=== PATIENT | female | born 1955 | race Caucasian/White ===

== ENCOUNTER 2019-04-14 14:32 | Outpatient (CLI) | payer OTHER | END 2019-04-14 14:33 | disposition critical access hospital (66) | LOC: EMS 14:32 | PROVIDERS: ATTEND Surgery | DX: R07.9 Chest pain, unspecified (principal); R06.02 Shortness of breath | CPT/HCPCS: A0425; A0427 ==

== ENCOUNTER 2019-04-14 15:08 | Emergency (ER) | payer OTHER ==
--- NOTE | 2019-04-14 15:52 | ED Physician Documentation ---
PD HPI CHEST PAIN - Stated complaint Stated Complaint: CP - Chief complaint Chief Complaint: Cardiac - History obtained from History obtained from: Patient - History of Present Illness Timing - onset: Enter time (99), Today Timing - onset during: Rest Timing - duration: Hours Timing - details: Abrupt onset, Still present, Waxing and waning Pain level max: 6 Pain level now: 3 Quality: Pressure Location: Substernal, Left chest Radiation: Back. No: Jaw, Neck, Abdominal, Left upper extremity, Right upper extremity Improved by: Nothing Worsened by: Other (stress) Associated symptoms: No: Shortness of air, Diaphoresis, Nausea, Vomiting, Feeling faint / dizzy, General Weakness, Palpitations, Cough Similar symptoms before: Diagnosis (stress related chest pain) Recently seen: Clinic - Additional information Additional information: Previously well 63-year-old female with a history of stress related chest pain and a family history of early coronary disease I disease has developed chest pain at about 1 AM today at rest. She states the pain is like a pressure on her anterior chest and to the left and she is not having radiation into her jaw neck or arm and she denies any diaphoresis lightheadedness or dizziness. She has had similar pains previously and feels that she is under significant stress with a move and problems with her children. She indicates that she has had a prior episode similar to this related to stress spent the [facility] and [facility] and had negative work-up including stress test. Review of Systems Constitutional: denies: Fever Eyes: denies: Decreased vision Ears: denies: Ear pain Nose: denies: Rhinorrhea / runny nose, Congestion Throat: denies: Sore throat Cardiac: reports: Chest pain / pressure. denies: Palpitations, Pedal edema, Calf pain Respiratory: denies: Dyspnea, Cough, Wheezing GI: denies: Abdominal Pain, Nausea, Vomiting : denies: Dysuria, Frequency Skin: denies: Rash Musculoskeletal: denies: Neck pain, Back pain, Extremity pain Neurologic: denies: Generalized weakness, Focal weakness PD PAST MEDICAL HISTORY - Past Medical History Cardiovascular: Hypertension Respiratory: None Endocrine/Autoimmune: None GI: GERD, Pancreatitis CT TECHNOLOGIST: None : None HEENT: None Psych: Depression Musculoskeletal: None, Chronic back pain Derm: None - Past Surgical History Past Surgical History: Yes General: Cholecystectomy, Gastric surgery Ortho: Carpal Tunnel surgery /CT TECHNOLOGIST: Hysterectomy HEENT: Other - Present Medications Home Medications: Ambulatory Orders Medication Instructions Recorded Confirmed Cetirizine HCl [Zyrtec] 10 mg PO DAILY 04/07/16 04/07/16 Esomeprazole Magnesium [Nexium] 1 mg PO DAILY 04/07/16 04/29/16 Losartan/Hydrochlorothiazide 1 each PO DAILY #30 tablet 04/07/16 04/29/16 [Hyzaar 100-12.5 Tablet] Venlafaxine ER [Effexor ER] 1 mg PO DAILY 04/07/16 04/29/16 Lorazepam [Ativan] 1 mg PO Q6HR PRN #12 tablet 04/14/19 - Allergies Allergies/Adverse Reactions: Allergies Allergy/AdvReac Type Severity Reaction Status Date / Time atenolol [From Tenormin] Allergy Hives Verified 04/14/19 15:28 lisinopril [From Zestril] Allergy Unknown Verified 04/14/19 15:28 nifedipine [From Procardia] Allergy Unknown Verified 04/14/19 15:28 codeine AdvReac Rash Verified 04/14/19 15:28 sulfamethoxazole AdvReac Rash Verified 04/14/19 15:28 [From Bactrim] trimethoprim [From Bactrim] AdvReac Rash Verified 04/14/19 15:28 - Social History Does the pt smoke?: No Smoking Status: Never smoker Does the pt drink ETOH?: No Does the pt have substance abuse?: No - Immunizations Immunizations are current?: Yes - POLST Patient has POLST: No PD ED PE NORMAL - Vitals Vital signs reviewed: Yes (hypertensive ) - General General: Alert and oriented X 3, Well developed/nourished, Other (appears anxious/stressed) - HEENT HEENT: Atraumatic, PERRL, EOMI, Ears normal, Moist mucous membranes, Other (teeth are missing ) - Neck Neck: Supple, no meningeal sign, No bony TTP - Cardiac Cardiac: RRR, No murmur - Respiratory Respiratory: No respiratory distress, Clear bilaterally - Abdomen Abdomen: Normal bowel sounds, Soft, Non tender, Non distended, No organomegaly - Back Back: No CVA TTP, No spinal TTP - Derm Derm: Normal color, Warm and dry, No rash - Extremities Extremities: No deformity, No edema - Neuro Neuro: Alert and oriented X 3, emergency department coordinator 2-12 intact, No motor deficit, No sensory deficit, Normal speech Eye Opening: Spontaneous Motor: Obeys Commands Verbal: Oriented GCS Score: 15 - Psych Psych: Normal mood, Normal affect Results - Vitals Vitals: Vital Signs - 24 hr 04/14/19 04/14/19 04/14/19 15:19 15:22 15:52 Temperature 36.7 C Heart Rate 65 70 67 Respiratory 24 19 20 Rate Blood Pressure 132/97 H 143/87 H 158/87 H O2 Saturation 100 100 100 04/14/19 04/14/19 04/14/19 16:22 16:30 17:00 Temperature Heart Rate 71 68 67 Respiratory 17 23 15 Rate Blood Pressure 150/106 H 143/81 H 144/85 H O2 Saturation 100 100 99 Oxygen O2 Source Room air - EKG (time done) 1519 Rate: Rate (enter#) (58) Rhythm: NSR QRS: LVH Ischemia: Non specific changes (ST elevation isolated to lead II) Compare to prior EKG: Old EKG unavailable Computer interpretation: Disagree with computer (I do not see ST elevation in leads III and aVF) - Labs Labs: Laboratory Tests 04/14/19 04/14/19 04/14/19 16:40 16:40 16:40 WBC 7.3 RBC 4.54 Hgb 11.6 L Hct 37.3 MCV 82.2 MCH 25.6 L MCHC 31.1 L RDW 15.2 H Plt Count 234 MPV 11.6 H Neut # (Auto) 5.1 Lymph # (Auto) 1.3 L [place] # (Auto) 0.5 Eos # (Auto) 0.2 Baso # (Auto) 0.1 Absolute Nucleated RBC 0.00 Nucleated RBC % 0.0 Sodium 139 Potassium 3.7 Chloride 105 Carbon Dioxide 24 Anion Gap 10.0 BUN 14 Creatinine 0.9 Estimated GFR (MDRD) 63 L Glucose 105 H Calcium 9.2 Total Bilirubin 1.1 H AST 34 ALT 20 Alkaline Phosphatase 89 Troponin I High Sens 4.4 Total Protein 7.3 Albumin 4.0 Globulin 3.3 Albumin/Globulin Ratio 1.2 Lipase 30 - Rads (name of study) chest Radiology: Prelim report reviewed (Impression: No acute disease.), EMP read indepedently, See rad report PD MEDICAL DECISION MAKING - ED course Complexity details: reviewed results, re-evaluated patient, considered differential, d/w patient, d/w family ED course: 63-year-old female with a strong family history of coronary artery disease with early and [place] and multiple family members has developed retrosternal chest pain similar to what she is had previously with stress reactions and similar to what she has been experiencing under stressful conditions. She does not have radiation of her pain she does not have other modifying factors other than the stress. She is administered Ativan and has some improvement in her pain. She has had pain since 1 AM and her sensitive troponin is negative. I do not believe this is a coronary syndrome. I will provide the patient with a limited amount of benzodiazepine and she will follow-up with her primary care doctor for referral to counseling as she is requesting this. Departure - Departure Disposition: 01 Home, Self Care Clinical Impression: Atypical chest pain, Stress reaction Condition: Stable Instructions: ED Stress React, ED Chest Pain Atypical Unkn Cause Follow-Up: VASHTI Davis [Provider Group] Prescriptions: Lorazepam [Ativan] 1 mg PO Q6HR PRN #12 tablet PRN Reason: anxiety/stress
--- NOTE | 2019-04-14 15:58 | XRAY Report ---
Reason: chest pain Procedure Date: 04/14/2019 Accession Number: [id number] / [id number] Procedure: XR - Chest 1 View X-Ray CPT Code: 60733 FULL RESULT: EXAM: CHEST RADIOGRAPHY EXAM DATE: 04/14/2019 03:37 PM. CLINICAL HISTORY: Chest pain. COMPARISON: None. TECHNIQUE: 1 view. FINDINGS: Lungs/Pleura: Clear. No effusion or pneumothorax. Mediastinum: Within exam limitations, the cardiomediastinal contour is normal. Upper lobe vessels not distended. Other: Surgical clips in epigastrium. IMPRESSION: No acute disease. RADIA
[2019-04-14] MEDS ORDERED: LORazepam 1 MG TABLET PO STA (16:02)
[2019-04-14 16:56] LABS: BASOPHILS # (AUTO) 0.1 10^3/uL (0.0-0.1); EOSINOPHILS # (AUTO) 0.2 10^3/uL (0.0-0.7); HGB - HEMOGLOBIN 11.6 g/dL (12.0-16.0); LYMPHOCYTES # (AUTO) 1.3 10^3/uL (1.5-3.5); LYMPHOCYTES % (AUTO) 18.5 %; MEAN CORPUSCULAR HEMOGLOBIN 25.6 pg (27.0-31.0); MEAN CORPUSCULAR HGB CONC 31.1 g/dL (32.0-36.0); MEAN CORPUSCULAR VOLUME 82.2 fL (81.0-99.0); MEAN PLATELET VOLUME 11.6 fL (7.9-10.8); MONOCYTES # (AUTO) 0.5 10^3/uL (0.0-1.0); MONOCYTES % (AUTO) 6.9 %; NEUTROPHILS # (AUTO) 5.1 10^3/uL (1.5-6.6); NEUTROPHILS % (AUTO) 70.5 %; PLT - PLATELET COUNT 234 10^3/uL (130-450); RED BLOOD COUNT 4.54 10^6/uL (4.20-5.40); RED CELL DISTRIBUTION WIDTH 15.2 % (12.0-15.0); WHITE BLOOD COUNT 7.3 x10^3/uL (4.8-10.8)
[2019-04-14 17:03] LABS: ALBUMIN/GLOBULIN RATIO 1.2 (1.0-2.2); BILIRUBIN,TOTAL 1.1 mg/dL (0.2-1.0); CALCIUM 9.2 mg/dL (8.5-10.3); CREATININE 0.9 mg/dL (0.4-1.0); TOTAL PROTEIN 7.3 g/dL (6.7-8.2)
[2019-04-14 17:37] VITALS: BP 151/69
== END 2019-04-14 17:37 | disposition home or self-care (01) ==
LOC: EDUNIT# → ED 15:08
DX: R07.89 Other chest pain (principal); F43.9 Reaction to severe stress, unspecified; I10 Essential (primary) hypertension; Z82.49 Family history of ischemic heart disease and other diseases of the circulatory system
CPT/HCPCS: 36415; 71045; 80053; 83690; 84484; 85025; 93005; 99284; J8499

== ENCOUNTER 2019-12-03 01:00 | Outpatient (CLI) | payer OTHER | END 2019-12-03 01:01 | disposition critical access hospital (66) | LOC: EMS 01:00 | PROVIDERS: ATTEND Surgery | DX: R55 Syncope and collapse (principal) | CPT/HCPCS: A0425; A0427 ==

== ENCOUNTER 2019-12-03 01:16 | Emergency (ER) | payer OTHER ==
--- NOTE | 2019-12-03 01:07 | ED Physician Documentation ---
History of Present Illness - Stated complaint Stated Complaint: GLF/SYNCOPE - History obtained from History obtained from: Patient (The patient is a 64-year-old female presents via EMS with a chief complaint of low blood pressure and left ankle pain and right flank pain.The patient reports that she was seen at the [facility] today and was started on Flomax for presumed kidney stone she is on 2 medications for hypertension after she took the Flomax tonight she stood up and had a syncopal episode EMS reports her systolic blood pressure was in the 70s she was given a 500 cc fluid bolus and she reports that she feels much better. She does report some right-sided flank pain that started yesterday she reports she is had multiple previous kidney stones and thinks she has a kidney stone denies any history of AAA or aortic dissection or aortic aneurysm.She denies any fevers or recent illnesses denies chest pain, headache, neck pain rashes cough or any other complaints. patient also reports left ankle pain after falling tonight.) Review of Systems Constitutional: reports: Other (Hypotension) Eyes: reports: Reviewed and negative Ears: reports: Reviewed and negative Nose: reports: Reviewed and negative Throat: reports: Reviewed and negative Cardiac: reports: Reviewed and negative Respiratory: reports: Reviewed and negative GI: reports: Reviewed and negative : reports: Other (Flank pain) Skin: reports: Reviewed and negative Musculoskeletal: reports: Reviewed and negative Neurologic: reports: Reviewed and negative Psychiatric: reports: Reviewed and negative Endocrine: reports: Reviewed and negative Immunocompromised: reports: Reviewed and negative PD PAST MEDICAL HISTORY - Present Medications Home Medications: Ambulatory Orders Medication Instructions Recorded Confirmed Cetirizine HCl [Zyrtec] 10 mg PO DAILY 04/07/16 04/07/16 Esomeprazole Magnesium [Nexium] 1 mg PO DAILY 04/07/16 04/29/16 Losartan/Hydrochlorothiazide 1 each PO DAILY #30 tablet 04/07/16 04/29/16 [Hyzaar 100-12.5 Tablet] Venlafaxine ER [Effexor ER] 1 mg PO DAILY 04/07/16 04/29/16 Lorazepam [Ativan] 1 mg PO Q6HR PRN #12 tablet 04/14/19 - Allergies Allergies/Adverse Reactions: Allergies Allergy/AdvReac Type Severity Reaction Status Date / Time atenolol [From Tenormin] Allergy Hives Verified 04/14/19 15:28 lisinopril [From Zestril] Allergy Unknown Verified 04/14/19 15:28 nifedipine [From Procardia] Allergy Unknown Verified 04/14/19 15:28 codeine AdvReac Rash Verified 04/14/19 15:28 sulfamethoxazole AdvReac Rash Verified 04/14/19 15:28 [From Bactrim] trimethoprim [From Bactrim] AdvReac Rash Verified 04/14/19 15:28 PD ED PE NORMAL - Vitals Vital signs reviewed: Yes - General General: Alert and oriented X 3, No acute distress, Well developed/nourished - HEENT HEENT: Atraumatic, PERRL - Neck Neck: Supple, no meningeal sign, No adenopathy, No JVD - Cardiac Cardiac: RRR, No murmur, Strong equal pulses - Respiratory Respiratory: No respiratory distress, Clear bilaterally - Abdomen Abdomen: Normal bowel sounds, Soft, Non tender, Non distended, No organomegaly, Other (No midline abdominal pulsatile mass) - Back Back: No spinal TTP, Other (Right-sided CVA tenderness) - Derm Derm: Normal color, Warm and dry, No rash - Extremities Extremities: Other (Swelling and ecchymosis to the left lateral malleolus the patient is unable to bear weight negative calf squeeze no pain over the proximal fibular head compartments are soft palpable DP and PT pulses sensations intact to light touch, Compartments are soft, neurovascular intact.) - Neuro Neuro: Alert and oriented X 3, fresh work inspector 2-12 intact, No motor deficit, No sensory deficit, Normal speech - Psych Psych: Normal mood, Normal affect Results - Vitals Vitals: Vital Signs - 24 hr 12/03/19 12/03/19 12/03/19 01:17 01:27 01:55 Temperature 36.5 C Heart Rate 69 67 67 Respiratory 17 14 16 Rate Blood Pressure 97/46 L 103/50 L O2 Saturation 98 100 100 12/03/19 12/03/19 12/03/19 02:08 02:10 02:40 Temperature Heart Rate 69 Respiratory 11 L 17 17 Rate Blood Pressure 98/50 L O2 Saturation 99 12/03/19 12/03/19 12/03/19 02:55 03:02 03:15 Temperature Heart Rate 78 72 Respiratory 17 18 16 Rate Blood Pressure 129/65 129/65 O2 Saturation 100 100 04/29/20 04/29/20 04/29/20 03:48 03:54 04:07 Temperature Heart Rate 74 71 Respiratory 14 16 17 Rate Blood Pressure 108/59 L 108/59 L O2 Saturation 100 100 12/03/19 12/03/19 12/03/19 05:03 05:35 06:00 Temperature Heart Rate 68 67 68 Respiratory 17 14 17 Rate Blood Pressure 111/68 128/74 126/73 O2 Saturation 100 100 100 12/03/19 06:11 Temperature Heart Rate Respiratory 17 Rate Blood Pressure O2 Saturation Oxygen O2 Source Room air - EKG (time done) 01:55 Rate: Other (no stemi) - Labs Labs: Laboratory Tests 12/03/19 12/03/19 12/03/19 01:55 01:55 01:55 WBC 5.0 RBC 3.91 L Hgb 9.5 L Hct 31.8 L MCV 81.3 MCH 24.3 L MCHC 29.9 L RDW 16.6 H Plt Count 183 MPV 11.2 H Neut # (Auto) 2.3 Lymph # (Auto) 2.0 [place] # (Auto) 0.5 Eos # (Auto) 0.2 Baso # (Auto) 0.1 Absolute Nucleated RBC 0.00 Nucleated RBC % 0.0 PT 12.1 INR 1.1 APTT 27.0 Sodium 138 Potassium 3.2 L Chloride 107 Carbon Dioxide 24 Anion Gap 7.0 BUN 16 Creatinine 0.9 Estimated GFR (MDRD) 63 L Glucose 67 L Lactic Acid Calcium 8.4 L Total Bilirubin 0.6 AST 31 ALT 18 Alkaline Phosphatase 72 Total Creatine Kinase 49 Troponin I High Sens B-Natriuretic Peptide Total Protein 6.1 L Albumin 3.5 Globulin 2.6 Albumin/Globulin Ratio 1.3 Lipase 28 TSH Urine Color Urine Clarity Urine pH Ur Specific [place] Urine Protein Urine Glucose (UA) Urine Ketones Urine Occult Blood Urine Nitrite Urine Bilirubin Urine Urobilinogen Ur Leukocyte Esterase Ur Microscopic Review Urine Culture Comments Urine Opiates Screen Ur Oxycodone Screen Urine Methadone Screen Ur Propoxyphene Screen Ur Barbiturates Screen Ur Tricyclics Screen Ur Phencyclidine Scrn Ur Amphetamine Screen U Methamphetamines Scrn U Benzodiazepines Scrn Urine Cocaine Screen U Cannabinoids Screen Ethyl Alcohol < 5.0 04/29/20 04/29/20 04/29/20 01:55 01:55 01:55 WBC RBC Hgb Hct MCV MCH MCHC RDW Plt Count MPV Neut # (Auto) Lymph # (Auto) [place] # (Auto) Eos # (Auto) Baso # (Auto) Absolute Nucleated RBC Nucleated RBC % PT INR APTT Sodium Potassium Chloride Carbon Dioxide Anion Gap BUN Creatinine Estimated GFR (MDRD) Glucose Lactic Acid 1.3 Calcium Total Bilirubin AST ALT Alkaline Phosphatase Total Creatine Kinase Troponin I High Sens 3.4 B-Natriuretic Peptide 25 Total Protein Albumin Globulin Albumin/Globulin Ratio Lipase TSH Urine Color Urine Clarity Urine pH Ur Specific [place] Urine Protein Urine Glucose (UA) Urine Ketones Urine Occult Blood Urine Nitrite Urine Bilirubin Urine Urobilinogen Ur Leukocyte Esterase Ur Microscopic Review Urine Culture Comments Urine Opiates Screen Ur Oxycodone Screen Urine Methadone Screen Ur Propoxyphene Screen Ur Barbiturates Screen Ur Tricyclics Screen Ur Phencyclidine Scrn Ur Amphetamine Screen U Methamphetamines Scrn U Benzodiazepines Scrn Urine Cocaine Screen U Cannabinoids Screen Ethyl Alcohol 12/03/19 12/03/19 12/03/19 01:55 03:00 05:00 WBC 6.6 RBC 4.01 L Hgb 10.3 L Hct 32.9 L MCV 82.0 MCH 25.7 L MCHC 31.3 L RDW 16.6 H Plt Count 205 MPV 11.3 H Neut # (Auto) 4.7 Lymph # (Auto) 1.2 L [place] # (Auto) 0.4 Eos # (Auto) 0.2 Baso # (Auto) 0.1 Absolute Nucleated RBC 0.00 Nucleated RBC % 0.0 PT INR APTT Sodium Potassium Chloride Carbon Dioxide Anion Gap BUN Creatinine Estimated GFR (MDRD) Glucose Lactic Acid Calcium Total Bilirubin AST ALT Alkaline Phosphatase Total Creatine Kinase Troponin I High Sens B-Natriuretic Peptide Total Protein Albumin Globulin Albumin/Globulin Ratio Lipase TSH 3.70 Urine Color YELLOW Urine Clarity CLEAR Urine pH 5.5 Ur Specific [place] <=1.005 Urine Protein NEGATIVE Urine Glucose (UA) NEGATIVE Urine Ketones NEGATIVE Urine Occult Blood TRACE-INTA Urine Nitrite NEGATIVE Urine Bilirubin NEGATIVE Urine Urobilinogen 0.2 (NORMAL) Ur Leukocyte Esterase NEGATIVE Ur Microscopic Review NOT INDICATED Urine Culture Comments NOT INDICATED Urine Opiates Screen NEGATIVE Ur Oxycodone Screen NEGATIVE Urine Methadone Screen NEGATIVE Ur Propoxyphene Screen NEGATIVE Ur Barbiturates Screen NEGATIVE Ur Tricyclics Screen NEGATIVE Ur Phencyclidine Scrn NEGATIVE Ur Amphetamine Screen NEGATIVE U Methamphetamines Scrn NEGATIVE U Benzodiazepines Scrn NEGATIVE Urine Cocaine Screen NEGATIVE U Cannabinoids Screen NEGATIVE Ethyl Alcohol Procedures - Splint (location) Lower extremity left Splint applied by: Tech Type of splint: Fiberglass, Short leg, Posterior, Stirrup Other: Patient tolerated well, No complications, Neurovascular intact, Crutches provided PD MEDICAL DECISION MAKING - ED course Complexity details: considered differential (Given the patient's history and physical and the fact that she is on chronic medications for hypertension and today was started empirically on Flomax this could possibly be iatrogenic hypotension from the Flomax. Regardless patient will receive a thorough work-up to include chest x-ray EKG lab work CT scan abdomen and pelvis to rule out kidney stone or aortic aneurysm or aortic dissection.), d/w patient (And lengthy discussion with this patient about her results and she will follow-up at the [facility] today with her primary care provider.), d/w family, other (Patient's work-up does show a left lateral malleolus fracture without displacement her left ankle was immobilized and splinted with Ortho-Glass and patient provided crutches. Her work-up also showed a left kidney subcapsular hematoma that appears to be subacute and had a lengthy discussion with general surgery this can be followed as an outpatient her hemoglobin originally was approximately 9.4 we did recheck it at the 4-hour appointment was approximately 10.4. She is hemodynamically stable she has had systolic blood pressures in the 120s to 130s for the last 4 hours patient would like to be discharged home at a lengthy discussion with the patient's son and the patient's son and the patient and are all agreeable for this patient to be discharged with close follow-up.) - Consults Consults: Discussed case with (surgeon. dr. hutchinson will dc home with close follow up.) Departure - Departure Disposition: Home, Self Care Clinical Impression: Hypotension Qualifiers: Hypotension type: unspecified hypotension type Qualified Code(s): I95.9 - Hypotension, unspecified Closed left ankle fracture Qualifiers: Encounter type: initial encounter Qualified Code(s): S82.892A - Other fracture of left lower leg, initial encounter for closed fracture Hematoma of kidney, closed Qualifiers: Encounter type: initial encounter Laterality: left Qualified Code(s): S37.012A - Minor contusion of left kidney, initial encounter Condition: Stable Instructions: ED Fx Ankle Lateral Malleolus Follow-Up: ARDEN HANEY [Primary Care Provider] - Comments: follow up with your doctor today for a follow up. follow up with orthopedic surgery this week for a follow up. follow up with your doctor for left kidney hematoma in 1 week for a recheck. use crutches and stay in splint.
[2019-12-03] MEDS ORDERED: SODIUM CHLORIDE 0.9% 1,000 ML IV ONE (01:49)
[2019-12-03 02:08] LABS: BASOPHILS # (AUTO) 0.1 10^3/uL (0.0-0.1); EOSINOPHILS # (AUTO) 0.2 10^3/uL (0.0-0.7); EOSINOPHILS % (AUTO) 4.2 %; HGB - HEMOGLOBIN 9.5 g/dL (12.0-16.0); LYMPHOCYTES % (AUTO) 39.4 %; MEAN CORPUSCULAR HEMOGLOBIN 24.3 pg (27.0-31.0); MEAN CORPUSCULAR HGB CONC 29.9 g/dL (32.0-36.0); MEAN CORPUSCULAR VOLUME 81.3 fL (81.0-99.0); MEAN PLATELET VOLUME 11.2 fL (7.9-10.8); MONOCYTES # (AUTO) 0.5 10^3/uL (0.0-1.0); MONOCYTES % (AUTO) 9.4 %; NEUTROPHILS # (AUTO) 2.3 10^3/uL (1.5-6.6); NEUTROPHILS % (AUTO) 45.8 %; PLT - PLATELET COUNT 183 10^3/uL (130-450); RED BLOOD COUNT 3.91 10^6/uL (4.20-5.40); RED CELL DISTRIBUTION WIDTH 16.6 % (12.0-15.0)
[2019-12-03 02:20] LABS: INR 1.1 (0.8-1.2); PT - PROTHROMBIN TIME 12.1 secs (9.9-12.6)
[2019-12-03 02:22] LABS: ALBUMIN 3.5 g/dL (3.2-5.5); ALBUMIN/GLOBULIN RATIO 1.3 (1.0-2.2); ALKALINE PHOSPHATASE 72 IU/L (42-121); ALT ALANINE AMINOTRANSFERASE 18 IU/L (10-60); AST ASPARTATE AMINOTRANSFERASE 31 IU/L (10-42); BILIRUBIN,TOTAL 0.6 mg/dL (0.2-1.0); BUN - BLOOD UREA NITROGEN 16 mg/dL (6-20); CALCIUM 8.4 mg/dL (8.5-10.3); CARBON DIOXIDE - CO2 24 mmol/L (21-32); CHLORIDE 107 mmol/L (101-111); CK- CREATINE KINASE 49 IU/L (22-269); CREATININE 0.9 mg/dL (0.4-1.0); GLUCOSE 67 mg/dL (70-100); LIPASE 28 U/L (22-51); SODIUM 138 mmol/L (135-145); TOTAL PROTEIN 6.1 g/dL (6.7-8.2)
--- NOTE | 2019-12-03 02:25 | XRAY Report ---
Reason: cp Procedure Date: 12/03/2019 Accession Number: [id number] / [id number] Procedure: XR - Chest 1 View X-Ray CPT Code: 92362 Final Report FULL RESULT: EXAM: CHEST RADIOGRAPHY EXAM DATE: 12/03/2019 02:16 AM. CLINICAL HISTORY: Chest pain. COMPARISON: CHEST 1 VIEW 04/14/2019 3:20 PM. TECHNIQUE: 1 view. FINDINGS: Lungs/Pleura: No alveolar consolidation or pleural effusion seen. No pneumothorax. Mediastinum: Within exam limitations, the cardiomediastinal contour is normal. Aortic atherosclerosis. Other: Postoperative changes in the upper abdomen. IMPRESSION: 1. No acute abnormality seen in the chest. RADIA
[2019-12-03] MEDS ORDERED: IOVERSOL 320 100 ML VIAL IVP ONE ×2 (02:38→03:01)
[2019-12-03 03:08] LABS: MUDS CUTOFF CONCENTRATIONS CUTOFF CONC BELOW:
[2019-12-03 03:10] LABS: BILIRUBIN,URINE NEGATIVE (NEGATIVE); GLUCOSE, URINE (UA) NEGATIVE (NEGATIVE); KETONES,URINE (UA) NEGATIVE (NEGATIVE); LEUKOCYTE ESTERASE, URINE NEGATIVE (NEGATIVE); NITRITE,URINE NEGATIVE (NEGATIVE); OCCULT BLOOD,URINE TRACE-INTA (NEGATIVE); PH,URINE 5.5 PH (5.0-7.5); PROTEIN,URINE NEGATIVE (NEGATIVE); UROBILINOGEN,URINE 0.2 (NORMAL) E.U./dL (NORMAL)
[2019-12-03 03:11] LABS: CLARITY,URINE CLEAR (CLEAR)
--- NOTE | 2019-12-03 03:16 | CT Report ---
Reason: abd pain Procedure Date: 12/03/2019 Accession Number: [id number] / [id number] Procedure: CT - Abdomen/Pelvis W CPT Code: Final Report FULL RESULT: EXAM: CT ABDOMEN AND PELVIS EXAM DATE: 12/03/2019 02:55 AM CLINICAL HISTORY: Abdominal pain. COMPARISONS: None. TECHNIQUE: Routine helical CT imaging was performed through the abdomen and pelvis. IV contrast: 100 mL Optiray 320. Enteric contrast: No. Reconstructions: Coronal and sagittal. In accordance with CT protocol optimization, one or more of the following dose reduction techniques were utilized for this exam: automated exposure control, adjustment of mA and/or KV based on patient size, or use of iterative reconstructive technique. FINDINGS: Motion compromises exam sensitivity and specificity. ABDOMEN: Liver: No significant abnormality. Stomach/Distal Esophagus: Prior gastric bypass surgery. Gallbladder: Surgically absent. Bile Ducts: No significant abnormality. Pancreas: Moderate parenchymal volume loss involving the neck, body, and tail of the pancreas. Spleen: No significant abnormality. Kidneys: There is diffuse parenchymal thinning within the kidneys bilaterally. There is a stone within the right lower kidney measuring 6.7 mm (image 49 series 3), measuring 653 HU in density. No hydronephrosis. Similar punctate intrarenal stone within the midportion of the left kidney noted. There is a small left-sided perinephric hematoma measuring 4.1 x 1.4 x 3.4 cm (image 36 series 3). The right kidney abuts the posterolateral abdominal wall. This is probably a sequela of prior surgery. The tract of which is seen within the right posterolateral flank (image 47 series 3). Adrenals: No significant abnormality. Bowel: There is a moderate amount of retained colonic fecal matter. No small bowel obstruction. Appendix: Not visualized with certainty. Lymph Nodes: No pathologically enlarged nodes. Vasculature: Normal caliber aorta. There is moderate to severe aortic and branch vessel atherosclerosis. Fluid: No significant free fluid. Abdominal Wall: No significant abnormality. Other: No significant abnormality. PELVIS: Uterus and Ovaries: Surgically absent uterus. Ovaries are not visualized, possibly surgically absent as well. Bladder: No significant abnormality. Lymph Nodes: No pathologically enlarged nodes. Fluid: No significant free fluid. Other: Scarring within the anterior pelvic wall related to prior surgery. BONES: No suspicious bony lesions. LOWER CHEST: Moderate to severe coronary vascular calcifications. No significant consolidation or effusion. IMPRESSION: 1. There is a small left-sided subcapsular hematoma measuring 4.1 x 1.4 x 3.4 cm. This is probably subacute. 2. There are single bilateral intrarenal kidney stones measuring up to 6.7 mm. No hydronephrosis. Parenchymal thinning within the kidneys bilaterally. 3. There is moderate amount of retained colonic fecal matter, which may be from constipation. No evidence of small bowel obstruction. Appendix is not visualized. RADIA The call report notification system was initiated by Dr. Derrick Winters at 03:14 AM on 12/03/2019. The above call report findings were discussed with Dr. Noel Strange by Dr. Derrick Winters at 03:20 AM on 12/03/2019.
[2019-12-03 03:29] LABS: AMPHETAMINE SCREEN,URINE NEGATIVE (NEGATIVE); BENZODIAZEPINES SCREEN, URINE NEGATIVE (NEGATIVE); COCAINE SCREEN URINE NEGATIVE (NEGATIVE); METHADONE SCREEN, URINE NEGATIVE (NEGATIVE); METHAMPHETAMINES SCREEN, URINE NEGATIVE (NEGATIVE); OPIATE SCREEN, URINE NEGATIVE (NEGATIVE); OXYCODONE SCREEN, URINE NEGATIVE (NEGATIVE); PROPOXYPHENE SCREEN, URINE NEGATIVE (NEGATIVE); TRICYCLIC ANTIDEPRESSANT,URINE NEGATIVE (NEGATIVE)
--- NOTE | 2019-12-03 03:47 | XRAY Report ---
Reason: pain Procedure Date: 12/03/2019 Accession Number: [id number] / [id number] Procedure: XR - Ankle 3 View LT CPT Code: Final Report FULL RESULT: EXAM: LEFT ANKLE RADIOGRAPHY EXAM DATE: 12/03/2019 03:30 AM. CLINICAL HISTORY: Pain after injury. COMPARISON: None. TECHNIQUE: 3 views. FINDINGS: Bones: Fracture of the lateral malleolus with about 2 mm lateral displacement of the distal fracture fragment. Joints: No dislocation seen. Ankle mortise appears intact. Possible joint effusion. Soft Tissues: Soft tissue swelling. IMPRESSION: 1. Lateral malleolus fracture. RADIA
[2019-12-03 05:09] LABS: BASOPHILS # (AUTO) 0.1 10^3/uL (0.0-0.1); BASOPHILS % (AUTO) 0.8 %; EOSINOPHILS # (AUTO) 0.2 10^3/uL (0.0-0.7); EOSINOPHILS % (AUTO) 2.9 %; HGB - HEMOGLOBIN 10.3 g/dL (12.0-16.0); LYMPHOCYTES # (AUTO) 1.2 10^3/uL (1.5-3.5); LYMPHOCYTES % (AUTO) 18.8 %; MEAN CORPUSCULAR HEMOGLOBIN 25.7 pg (27.0-31.0); MEAN CORPUSCULAR HGB CONC 31.3 g/dL (32.0-36.0); MEAN PLATELET VOLUME 11.3 fL (7.9-10.8); MONOCYTES # (AUTO) 0.4 10^3/uL (0.0-1.0); MONOCYTES % (AUTO) 6.4 %; NEUTROPHILS # (AUTO) 4.7 10^3/uL (1.5-6.6); NEUTROPHILS % (AUTO) 70.8 %; PLT - PLATELET COUNT 205 10^3/uL (130-450); RED BLOOD COUNT 4.01 10^6/uL (4.20-5.40); RED CELL DISTRIBUTION WIDTH 16.6 % (12.0-15.0); WHITE BLOOD COUNT 6.6 x10^3/uL (4.8-10.8)
[2019-12-03 06:14] VITALS: BP 126/73
== END 2019-12-03 06:15 | disposition home or self-care (01) ==
LOC: EDUNIT# → ED 01:16
DX: I95.9 Hypotension, unspecified (principal); S37.012A Minor contusion of left kidney, initial encounter; S82.62XA Displaced fracture of lateral malleolus of left fibula, initial encounter for closed fracture; X50.1XXA Overexertion from prolonged static or awkward postures, initial encounter; Y93.89 Activity, other specified
CPT/HCPCS: 29515; 36415; 71045; 73610; 74177; 80320; 81003; 82550; 83605; 83690; 83880; 84484; 85610; 85730; 93005; 96360; 99284; Q9967; 80053; 80306; 81001; 84443; 85025; 87086

== ENCOUNTER 2020-08-09 20:44 | Outpatient (CLI) | payer OTHER | END 2020-08-09 20:45 | disposition short-term general hospital (02) | LOC: EMS 20:44 | PROVIDERS: ATTEND Surgery | DX: R55 Syncope and collapse (principal); R11.10 Vomiting, unspecified; R19.7 Diarrhea, unspecified | CPT/HCPCS: A0425; A0427 ==

== ENCOUNTER 2021-01-18 08:47 | Outpatient (CLI) | payer MEDICARE, OTHER | END 2021-01-18 08:48 | disposition critical access hospital (66) | LOC: EMS 08:47 | DX: R11.0 Nausea (principal); R42 Dizziness and giddiness | CPT/HCPCS: A0425; A0427 ==

== ENCOUNTER 2021-01-18 09:04 | Emergency (ER) | payer MEDICARE, OTHER ==
[2021-01-18] MEDS ORDERED: SODIUM CHLORIDE 0.9% 1,000 ML IV STA (09:27)
--- NOTE | 2021-01-18 09:29 | ED Physician Documentation ---
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 Had to lie down on the floor for concern of fainting. No LOC per se, but pale and weak for few minutes. Improving by EMS arrival, but still weak. No chest pain. BP low per EMS.) Preceding symptoms: Light headed, Generalized weakness. No: Headache, Chest pain, Dyspnea, Abdominal pain Associated symptoms: No: Headache, Chest pain, Palpitations, Nausea / vomiting Contributing factors: No: Recent med change, Decreased PO intake, Exertion (was walking in department store, but not feeling exerted.) Injury occurred: No: Fell, Head injury, Neck injury Similar symptoms before: No diagnosis (has had this occur several times without clear diagnosis. Had full syncope with ankle fracture one time couple years ago.) Recently seen: Not recently seen Review of Systems Constitutional: denies: Fever, Chills Nose: denies: Rhinorrhea / runny nose, Congestion Throat: denies: Sore throat Cardiac: denies: Chest pain / pressure, Palpitations Respiratory: denies: Dyspnea, Cough GI: denies: Abdominal Pain, Nausea, Vomiting : denies: Dysuria, Frequency Neurologic: reports: Generalized weakness, Near syncope. 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 HEENT: Other - Present Medications Home Medications: Ambulatory Orders Medication Instructions Recorded Confirmed Cetirizine HCl [Zyrtec] 10 mg PO DAILY 04/07/16 04/07/16 Esomeprazole Magnesium [Nexium] 1 mg PO DAILY 04/07/16 04/29/16 Losartan/Hydrochlorothiazide 1 each PO DAILY #30 tablet 04/07/16 04/29/16 [Hyzaar 100-12.5 Tablet] Venlafaxine ER [Effexor ER] 1 mg PO DAILY 04/07/16 04/29/16 Lorazepam [Ativan] 1 mg PO Q6HR PRN #12 tablet 04/14/19 - Allergies Allergies/Adverse Reactions: Allergies Allergy/AdvReac Type Severity Reaction Status Date / Time atenolol [From Tenormin] Allergy Hives Verified 01/18/21 09:17 lisinopril [From Zestril] Allergy Unknown Verified 01/18/21 09:17 nifedipine [From Procardia] Allergy Unknown Verified 01/18/21 09:17 codeine AdvReac Rash Verified 01/18/21 09:17 sulfamethoxazole AdvReac Rash Verified 01/18/21 09:17 [From Bactrim] trimethoprim [From Bactrim] AdvReac Rash Verified 01/18/21 09:17 - Social History Does the pt smoke?: No Smoking Status: Never smoker Does the pt drink ETOH?: No Does the pt have substance abuse?: No - Immunizations Immunizations are current?: Yes - POLST Patient has POLST: No PD ED PE NORMAL - Vitals Vital signs reviewed: Yes - General General: Alert and oriented X 3, No acute distress, Well developed/nourished - HEENT HEENT: Moist mucous membranes, Pharynx benign - Neck Neck: Supple, no meningeal sign, No adenopathy - Cardiac Cardiac: RRR, No murmur - Respiratory Respiratory: Clear bilaterally - Abdomen Abdomen: Soft, Non tender - Derm Derm: Normal color, Warm and dry - Extremities Extremities: No tenderness to palpate, No edema, No calf tenderness / cord - Neuro Neuro: Alert and oriented X 3, No motor deficit, Normal speech Results - Vitals Vitals: Oxygen O2 Source Room air - EKG (time done) 09:17 Rate: Rate (enter#) (57) Rhythm: Sinus bradycardia Burke: Normal Intervals: Normal MT QRS: Normal Ischemia: Normal ST segments. No: ST elevation c/w ischemia, ST depression Computer interpretation: Disagree with computer - Labs Labs: Laboratory Tests 01/18/21 01/18/21 01/18/21 09:04 09:04 09:04 WBC 5.2 RBC 4.08 L Hgb 10.2 L Hct 33.0 L MCV 80.9 L MCH 25.0 L MCHC 30.9 L RDW 15.9 H Plt Count 218 MPV 11.6 H Neut # (Auto) 3.4 Lymph # (Auto) 1.2 L Towner # (Auto) 0.4 Eos # (Auto) 0.2 Baso # (Auto) 0.1 Absolute Nucleated RBC 0.00 Nucleated RBC % 0.0 Sodium 141 Potassium 3.7 Chloride 108 Carbon Dioxide 23 Anion Gap 10.0 BUN 14 Creatinine 0.9 Estimated GFR (MDRD) 63 L Glucose 160 H Calcium 8.9 Magnesium 2.0 Total Bilirubin 1.3 H AST 26 ALT 18 Alkaline Phosphatase 97 Troponin I High Sens 3.0 Total Protein 6.4 L Albumin 3.6 Globulin 2.8 Albumin/Globulin Ratio 1.3 Lipase 22 TSH 01/18/21 09:04 WBC RBC Hgb Hct MCV MCH MCHC RDW Plt Count MPV Neut # (Auto) Lymph # (Auto) Towner # (Auto) Eos # (Auto) Baso # (Auto) Absolute Nucleated RBC Nucleated RBC % Sodium Potassium Chloride Carbon Dioxide Anion Gap BUN Creatinine Estimated GFR (MDRD) Glucose Calcium Magnesium Total Bilirubin AST ALT Alkaline Phosphatase Troponin I High Sens Total Protein Albumin Globulin Albumin/Globulin Ratio Lipase TSH 2.60 PD MEDICAL DECISION MAKING - ED course Complexity details: reviewed results, re-evaluated patient (feeling better with some IV fluids. ), considered differential, d/w patient Departure - Departure Disposition: 01 Home, Self Care Clinical Impression: Near syncope, Transient hypotension Condition: Stable Record reviewed to determine appropriate education?: Yes Instructions: ED Near Syncope Vasovagal Follow-Up: James Ortega [Primary Care Provider] - Comments: Stay well hydrated. Continue usual medications with exception of holding this evening's Cozaar dose. Check your BP and see how you feel tomorrow. Follow up with PMD next week as planned. Discharge Date/Time: 01/18/21 11:40
[2021-01-18 09:52] LABS: BASOPHILS # (AUTO) 0.1 10^3/uL (0.0-0.1); BASOPHILS % (AUTO) 1.3 %; EOSINOPHILS # (AUTO) 0.2 10^3/uL (0.0-0.7); EOSINOPHILS % (AUTO) 3.1 %; HGB - HEMOGLOBIN 10.2 g/dL (12.0-16.0); LYMPHOCYTES # (AUTO) 1.2 10^3/uL (1.5-3.5); LYMPHOCYTES % (AUTO) 22.3 %; MEAN CORPUSCULAR HGB CONC 30.9 g/dL (32.0-36.0); MEAN CORPUSCULAR VOLUME 80.9 fL (81.0-99.0); MEAN PLATELET VOLUME 11.6 fL (7.9-10.8); MONOCYTES # (AUTO) 0.4 10^3/uL (0.0-1.0); MONOCYTES % (AUTO) 7.8 %; NEUTROPHILS # (AUTO) 3.4 10^3/uL (1.5-6.6); NEUTROPHILS % (AUTO) 65.1 %; PLT - PLATELET COUNT 218 10^3/uL (130-450); RED BLOOD COUNT 4.08 10^6/uL (4.20-5.40); RED CELL DISTRIBUTION WIDTH 15.9 % (12.0-15.0); WHITE BLOOD COUNT 5.2 x10^3/uL (4.8-10.8)
[2021-01-18 10:07] LABS: ALBUMIN 3.6 g/dL (3.2-5.5); ALBUMIN/GLOBULIN RATIO 1.3 (1.0-2.2); BILIRUBIN,TOTAL 1.3 mg/dL (0.2-1.0); CALCIUM 8.9 mg/dL (8.5-10.3); CREATININE 0.9 mg/dL (0.4-1.0); POTASSIUM 3.7 mmol/L (3.5-5.0); TOTAL PROTEIN 6.4 g/dL (6.7-8.2)
[2021-01-18 11:34] VITALS: BP 144/73
== END 2021-01-18 11:40 | disposition home or self-care (01) ==
LOC: EDBD → EDUNIT# → ED 09:04
DX: R55 Syncope and collapse (principal); I95.9 Hypotension, unspecified; R00.1 Bradycardia, unspecified; R53.1 Weakness; I10 Essential (primary) hypertension
CPT/HCPCS: 36415; 80053; 83690; 83735; 84443; 84484; 85025; 93005; 96360; 99283

== ENCOUNTER 2021-01-22 08:52 | Outpatient (CLI) | payer MEDICARE, OTHER | END 2021-01-22 08:53 | disposition short-term general hospital (02) | LOC: EMS 08:52 | DX: R42 Dizziness and giddiness (principal); R11.0 Nausea | CPT/HCPCS: A0425; A0427 ==

== ENCOUNTER 2021-01-27 11:09 | Outpatient (CLI) | payer MEDICARE, OTHER | END 2021-01-27 11:10 | disposition short-term general hospital (02) | LOC: EMS 11:09 | DX: R40.4 Transient alteration of awareness (principal); R47.81 Slurred speech; R46.4 Slowness and poor responsiveness | CPT/HCPCS: A0425; A0427 ==